=== PATIENT | female | born 1975 | race Asian ===

== ENCOUNTER 2018-05-22 21:05 | Emergency (ER) | payer OTHER ==
[2018-05-22 21:22] VITALS: BP 155/95; PULSE 88; TEMP 98.3; BMI 28.3
[2018-05-22] MEDS ORDERED: AMOX TR/POT CLAV 875MG/125MG TABLETS (FP) PO ONE (22:17)
[2018-05-22] MEDS ORDERED: AMOX TR/POT CLAV 875MG/125MG TABLETS (FP) ONE (22:20)
--- NOTE | 2018-05-22 22:24 | PDOC ---
History of Present Illness - General Chief Complaint: Pain Stated Complaint: EAR PAIN Time Seen by Provider: 05/22/18 21:45 - History of Present Illness Initial Comments: 42-year-old female with past medical history significant for hypertension presents for evaluation of sinus congestion and bilateral ear pain 7 days. She denies fever or associated symptoms. Her symptoms are exacerbated when she leans forward. 05/22/18 22:19 Past History - Past Medical History Allergies/Adverse Reactions: Allergies Allergy/AdvReac Type Severity Reaction Status Date / Time No Known Allergies Allergy Verified 05/22/18 21:20 Home Medications: Ambulatory Orders Amox-Tr/K Cl [Augmentin - 875Mg Tablet] 1 tab PO BID #20 tablet 05/22/18 Budesonide [Rhinocort Allergy] 1 spray NS ONCE #1 spray.pump 05/22/18 COPD: No HTN: Yes - Suicide/Smoking/Psychosocial Hx Smoking History: Never smoked Have you smoked in the past 12 months: No Information on smoking cessation initiated: No Hx Alcohol Use: No Drug/Substance Use Hx: No Substance Use Type: None Review of Systems - Review of Systems HEENTM: Yes: Ear Pain, Nose Congestion All Other Systems: Reviewed and Negative *Physical Exam - Vital Signs Last Vital Signs Temp Pulse Resp BP Pulse Ox 98.3 F 88 18 155/95 99 05/22/18 21:20 05/22/18 21:20 05/22/18 21:20 05/22/18 21:20 05/22/18 21:20 - Physical Exam Comments: GENERAL: The patient is awake, alert, and fully oriented, in no acute distress. HEAD: Normal with no signs of trauma. EYES: Pupils equal, round and reactive to light, extraocular movements intact, sclera anicteric, conjunctiva clear. ENT: Bilateral ears tympanic membranes are retracted and erythematous nasal turbinates are swollen there is tenderness over the frontal sinuses with percussion, oropharynx clear without exudates. Moist mucous membranes. NECK: Normal range of motion, supple without lymphadenopathy, JVD, or masses. LUNGS: Breath sounds equal, clear to auscultation bilaterally. No wheezes, and no crackles. HEART: Regular rate and rhythm, normal S1 and S2 without murmur, rub or gallop. ABDOMEN: Soft, nontender, normoactive bowel sounds. No guarding, no rebound. No masses. EXTREMITIES: Normal range of motion, no edema. No clubbing or cyanosis. No cords, erythema, or tenderness. NEUROLOGICAL: Cranial nerves II through XII grossly intact. Normal speech, normal gait. PSYCH: Normal mood, normal affect. SKIN: Warm, Dry, normal turgor, no rashes or lesions noted. 05/22/18 22:20 Medical Decision Making - Medical Decision Making Sinusitis I will treat her with Augmentin and Rhinocort 05/22/18 22:21 *DC/Admit/Observation/Transfer Diagnosis at time of Disposition: Sinusitis - Discharge Dispostion Disposition: HOME Condition at time of disposition: Stable Decision to Admit order: No - Prescriptions Prescriptions: Amox-Tr/K Cl [Augmentin - 875Mg Tablet] 1 tab PO BID #20 tablet Budesonide [Rhinocort Allergy] 1 spray NS ONCE #1 spray.pump - Referrals Referrals: James Noyola MD [Primary Care Provider] - - Patient Instructions Printed Discharge Instructions: Sinusitis, DI for Sinusitis Additional Instructions: Take all the antibiotics as prescribed and use the nasal spray twice a day to help you with her symptoms. Return to the emergency room should her symptoms worsen or go unresolved. Steam showers will help with your congestion. Follow- up with your primary care physician in one to 2 days for further evaluation and treatment options - Post Discharge Activity
[2018-05-22] MEDS ORDERED: PSEUDOEPHEDRINE HCL 60 MG TABLET PO ONE (22:30)
== END 2018-05-22 22:29 | disposition home or self-care (01) ==
LOC: JERFT 21:05
DX: J32.9 Chronic sinusitis, unspecified (principal); I10 Essential (primary) hypertension
CPT/HCPCS: 99281-25